=== PATIENT | male | born 1975 | race Caucasian/White ===

== ENCOUNTER → 2016-05-02 | Outpatient (CLI) | payer BC ==
[2016-05-02 08:07] LABS: ALT 41 U/L (21-72); AST 35 U/L (17-59); Anion Gap 9 mmol/L; Blood Urea Nitrogen 14 mg/dL (9-20); Calcium 9.3 mg/dL (8.4-10.2); Carbon Dioxide 28 mmol/L (22-30); Chloride 104 mmol/L (98-107); Cholesterol 150 mg/dL (<200); Glucose 148 mg/dL (74-99); HDL Cholesterol 41 mg/dL (40-60); Non-African American GFR(MDRD) >60 (>60 ml/min/1.73 sqM); Potassium 3.7 mmol/L (3.5-5.1); Sodium 141 mmol/L (137-145); Triglycerides 97 mg/dL (<150)
[2016-05-03 09:10] LABS: Hemoglobin A1C 7.7 % (4.2-6.1)
== END ==
LOC: LABWHC1 07:08
PROVIDERS: ATTEND Internal Medicine Endocrinology, Diabetes & Metabolism
DX: E10.65 Type 1 diabetes mellitus with hyperglycemia (principal)
CPT/HCPCS: 36415; 80048; 80061; 83036; 84443; 84450; 84460

== ENCOUNTER → 2016-08-22 | Outpatient (CLI) | payer BC ==
[2016-08-22 10:52] LABS: Blood Urea Nitrogen 18 mg/dL (9-20); Calcium 9.2 mg/dL (8.4-10.2); Carbon Dioxide 27 mmol/L (22-30); HDL Cholesterol 50 mg/dL (40-60); Potassium 4.3 mmol/L (3.5-5.1)
[2016-08-22 11:06] LABS: ALT 35 U/L (21-72); AST 24 U/L (17-59); Anion Gap 8 mmol/L; Chloride 106 mmol/L (98-107); Cholesterol 170 mg/dL (<200); Glucose 162 mg/dL (74-99); Non-African American GFR(MDRD) >60 (>60 ml/min/1.73 sqM); Sodium 141 mmol/L (137-145)
[2016-08-22 11:09] LABS: Triglycerides 44 mg/dL (<150)
[2016-08-22 11:36] LABS: Hemoglobin A1C 7.5 % (4.2-6.1)
== END | disposition home or self-care (01) ==
LOC: LABWHC1 09:44
PROVIDERS: ATTEND Internal Medicine Endocrinology, Diabetes & Metabolism
DX: E78.5 Hyperlipidemia, unspecified (principal); E04.9 Nontoxic goiter, unspecified; E10.65 Type 1 diabetes mellitus with hyperglycemia
CPT/HCPCS: 36415; 80048; 80061; 82043; 82570; 83036; 84450; 84460

== ENCOUNTER 2016-10-03 06:29 | Emergency (ER) | payer BC ==
[2016-10-03] MEDS ORDERED: KETOROLAC 30 MG/ML 1 ML VIAL IVP STA (06:47)
[2016-10-03] MEDS ORDERED: SODIUM CHLORIDE 0.9% 1,000 ML IV STA ×3 (06:49→08:19)
--- NOTE | 2016-10-03 06:53 | ED ---
Headache HPI - General Source: patient, RN notes reviewed Mode of arrival: ambulatory Limitations: no limitations - History of Present Illness MD Complaint: headache, other <Rony Lozano - Last Filed: 10/03/16 06:50> <Christophe Hillman - Last Filed: 10/03/16 09:06> - General Chief Complaint: Headache Stated Complaint: Headache Time Seen by Provider: 10/03/16 06:36 - History of Present Illness Initial Comments: This is a 41-year-old male with a history of diabetes is insulin-dependent who states that about a week ago he was stung or bit in the neck by a bee in 4 days later no left leg. There is a bee sting he started developing a frontal headache which is gotten worse today he noticed blood pressure was elevated his blood sugars her right high 333 this morning he also feels very weak he denies any neck or back pain however. No cough no phlegm production he was noted have a fever 101 when he arrived today. He is having insulin pump states that normally his blood sugars under control he did get a steroid shot at a walk-in clinic this past week after the bee sting. He currently states he is frontal headache pain dull achy 8 at 9/10 severity. (Rony Lozano) - Related Data Home Medications Medication Instructions Recorded Confirmed INSULIN LISPRO (For Pump) [humaLOG 0.01 units SQ-PUMP CONTINUOUS 10/03/16 (For Pump)] Previous Rx's Medication Instructions Recorded Acetaminophen-Codeine 300-30mg 1 each PO Q4H PRN #12 tablet 10/03/16 [Tylenol #3] Amoxicillin 500 mg PO Q8H #30 capsule 10/03/16 Allergies Allergy/AdvReac Type Severity Reaction Status Date / Time bee venom protein (honey bee) Allergy Rash/Hives Verified 10/03/16 07:50 morphine Allergy Dyspnea Verified 10/03/16 07:50 Review of Systems ROS Other: All systems not noted in ROS Statement are negative. <Rony Lozano - Last Filed: 10/03/16 06:50> ROS Other: All systems not noted in ROS Statement are negative. <Christophe Hillman - Last Filed: 10/03/16 09:06> ROS Statement: Those systems with pertinent positive or pertinent negative responses have been documented in the HPI. Past Medical History Past Medical History: Diabetes Mellitus History of Any Multi-Drug Resistant Organisms: None Reported Additional Past Surgical History / Comment(s): ACL replacement left knee 1998. Past Psychological History: No Psychological Hx Reported Smoking Status: Never smoker Past Alcohol Use History: None Reported, Daily Past Drug Use History: None Reported <BlakeRony - Last Filed: 10/03/16 06:50> General Exam Limitations: no limitations General appearance: alert, anxious Head exam: Present: atraumatic, normocephalic, normal inspection, other ( Tenderness percussion over the frontal sinus and left maxillary sinus.) Eye exam: Present: normal appearance, PERRL, EOMI. Absent: scleral icterus, conjunctival injection, periorbital swelling ENT exam: Present: other (Mild posterior pharyngeal hyperemia is boggy swollen nasal mucosa) Neck exam: Present: normal inspection, full ROM, other (No stridor JVD or bruits ). Absent: tenderness, meningismus, lymphadenopathy Respiratory exam: Present: normal lung sounds bilaterally. Absent: respiratory distress, wheezes, rales, rhonchi, stridor Cardiovascular Exam: Present: regular rate, normal rhythm, normal heart sounds. Absent: systolic murmur, diastolic murmur, rubs, gallop, clicks GI/Abdominal exam: Present: soft, normal bowel sounds. Absent: distended, tenderness, guarding, rebound, rigid Extremities exam: Present: normal inspection, full ROM, normal capillary refill. Absent: tenderness, pedal edema, joint swelling, calf tenderness Back exam: Present: normal inspection Neurological exam: Present: alert, oriented X3, CN II-XII intact Psychiatric exam: Present: normal affect, normal mood Skin exam: Present: warm, dry, intact, normal color. Absent: rash <BlakeRony - Last Filed: 10/03/16 06:50> Neurological exam: Present: alert, CN II-XII intact. Absent: motor sensory deficit Expanded Speech: Present: fluid speech Sensory exam: Upper Extremity Light Touch: Normal, Lower Extremity Light Touch: Normal Motor strength exam: RUE: 5, LUE: 5, RLE: 5, LLE: 5 Eye Response: (4) open spontaneously Motor Response: (6) obeys commands Verbal Response: (5) oriented <Christophe Hillman - Last Filed: 10/03/16 09:06> - General Exam Comments Initial Comments: This is a well-developed well-nourished awake alert oriented 3 male (BlakeRony) Course <BlakeRony - Last Filed: 10/03/16 06:50> <Christophe Hillman - Last Filed: 10/03/16 09:06> Vital Signs 10/03/16 10/03/16 06:36 07:46 Temperature 100.0 F H Pulse Rate 87 73 Respiratory 17 20 Rate Blood Pressure 146/70 146/79 O2 Sat by Pulse 96 96 Oximetry - Reevaluation(s) Reevaluation #1: 10/03/16 06:53 The patient's care will be endorsed to Dr. Hillman at our shift change at 7 AM. ( BlakeRony) 10/03/16 08:20 Patient reevaluated and resting comfortably in bed. Patient states headache is 6/10. Patient states headache started following a bee sting 1 week ago. Headache progressed over 2 days and has been severe since that time. Patient did take Motrin once at home with no improvement of symptoms around 12 hours. No history of chronic headaches. Patient does admit to having sinus discomfort and does have tenderness over the frontal and ethmoid sinuses. No meningismus. Abdomen soft and nontender. 10/03/16 09:04 Patient states he is further improved and requesting discharge. Patient was updated on results. (Christophe Hillman) Medical Decision Making - Lab Data Result diagrams: 10/03/16 06:55 10/03/16 06:55 - Radiology Data Radiology results: image reviewed (Chest x-ray shows no acute process. Computed tomography scan of the brain shows no acute process.) <Christophe Hillman - Last Filed: 10/03/16 09:06> - Lab Data Lab Results 10/03/16 10/03/16 10/03/16 Range/Units 06:55 06:55 07:37 WBC 5.7 (3.8-10.6) k/uL RBC 4.95 (4.30-5.90) m/uL Hgb 15.6 (13.0-17.5) gm/dL Hct 43.9 (39.0-53.0) % MCV 88.5 (80.0-100.0) fL MCH 31.4 (25.0-35.0) pg MCHC 35.5 (31.0-37.0) g/dL RDW 12.1 (11.5-15.5) % Plt Count 144 L (150-450) k/uL Neutrophils % 60 % Lymphocytes % 28 % Monocytes % 5 % Eosinophils % 3 % Basophils % 1 % Neutrophils # 3.4 (1.3-7.7) k/uL Lymphocytes # 1.6 (1.0-4.8) k/uL Monocytes # 0.3 (0-1.0) k/uL Eosinophils # 0.2 (0-0.7) k/uL Basophils # 0.1 (0-0.2) k/uL Sodium 139 (137-145) mmol/L Potassium 4.3 (3.5-5.1) mmol/L Chloride 104 (98-107) mmol/L Carbon Dioxide 25 (22-30) mmol/L Anion Gap 10 mmol/L BUN 19 (9-20) mg/dL Creatinine 0.90 (0.66-1.25) mg/dL Est GFR (MDRD) Af Amer >60 (>60 ml/min/1.73 sqM) Est GFR (MDRD) Non-Af >60 (>60 ml/min/1.73 sqM) Glucose 308 H (74-99) mg/dL POC Glucose (mg/dL) 260 H (75-99) mg/dL POC Glu Warp Splitter Syed García Calcium 9.1 (8.4-10.2) mg/dL Magnesium 1.8 (1.6-2.3) mg/dL Total Bilirubin 0.8 (0.2-1.3) mg/dL AST 28 (17-59) U/L ALT 50 (21-72) U/L Alkaline Phosphatase 120 (38-126) U/L C-Reactive Protein <5.0 (<10.0) mg/L Total Protein 6.7 (6.3-8.2) g/dL Albumin 3.9 (3.5-5.0) g/dL Urine Color Urine Appearance (Clear) Urine pH (5.0-8.0) Ur Specific [place] (1.001-1.035) Urine Protein (Negative) Urine Glucose (UA) (Negative) Urine Ketones (Negative) Urine Blood (Negative) Urine Nitrite (Negative) Urine Bilirubin (Negative) Urine Urobilinogen (<2.0) mg/dL Ur Leukocyte Esterase (Negative) Acetone, Qual Negative (Negative) 10/03/16 Range/Units 07:50 WBC (3.8-10.6) k/uL RBC (4.30-5.90) m/uL Hgb (13.0-17.5) gm/dL Hct (39.0-53.0) % MCV (80.0-100.0) fL MCH (25.0-35.0) pg MCHC (31.0-37.0) g/dL RDW (11.5-15.5) % Plt Count (150-450) k/uL Neutrophils % % Lymphocytes % % Monocytes % % Eosinophils % % Basophils % % Neutrophils # (1.3-7.7) k/uL Lymphocytes # (1.0-4.8) k/uL Monocytes # (0-1.0) k/uL Eosinophils # (0-0.7) k/uL Basophils # (0-0.2) k/uL Sodium (137-145) mmol/L Potassium (3.5-5.1) mmol/L Chloride (98-107) mmol/L Carbon Dioxide (22-30) mmol/L Anion Gap mmol/L BUN (9-20) mg/dL Creatinine (0.66-1.25) mg/dL Est GFR (MDRD) Af Amer (>60 ml/min/1.73 sqM) Est GFR (MDRD) Non-Af (>60 ml/min/1.73 sqM) Glucose (74-99) mg/dL POC Glucose (mg/dL) (75-99) mg/dL POC Glu Warp Splitter ID Calcium (8.4-10.2) mg/dL Magnesium (1.6-2.3) mg/dL Total Bilirubin (0.2-1.3) mg/dL AST (17-59) U/L ALT (21-72) U/L Alkaline Phosphatase (38-126) U/L C-Reactive Protein (<10.0) mg/L Total Protein (6.3-8.2) g/dL Albumin (3.5-5.0) g/dL Urine Color Yellow Urine Appearance Clear (Clear) Urine pH 6.0 (5.0-8.0) Ur Specific [place] 1.015 (1.001-1.035) Urine Protein Negative (Negative) Urine Glucose (UA) 4+ H (Negative) Urine Ketones Negative (Negative) Urine Blood Negative (Negative) Urine Nitrite Negative (Negative) Urine Bilirubin Negative (Negative) Urine Urobilinogen <2.0 (<2.0) mg/dL Ur Leukocyte Esterase Negative (Negative) Acetone, Qual (Negative) Disposition <Rony Lozano - Last Filed: 10/03/16 06:50> Time of Disposition: 09:05 <Christophe Hillman - Last Filed: 10/03/16 09:06> Clinical Impression: Headache, Sinusitis Disposition: HOME SELF-CARE Condition: Stable Instructions: Acute Headache (ED), Sinusitis (ED) Additional Instructions: Please follow-up with your primary care physician in the next couple of days for recheck. Return for increased pain, weakness, fevers, worsening or change in symptoms or other concerns. Prescriptions: Acetaminophen-Codeine 300-30mg [Tylenol #3] 1 each PO Q4H PRN #12 tablet PRN Reason: Pain Amoxicillin 500 mg PO Q8H #30 capsule Referrals: Blake Rashid MD [STAFF PHYSICIAN] - 1-2 days J Carlos Hennessy MD [Primary Care Provider] - 1-2 days Seth Carlin MD [REFERRING] - 1-2 days
[2016-10-03 07:06] LABS: Basophils # (A) 0.1 k/uL (0-0.2); Basophils % (A) 1 %; CH 31.8; Eosinophils # (A) 0.2 k/uL (0-0.7); Eosinophils % (A) 3 %; HCT 43.9 % (39.0-53.0); HDW 2.87; HGB 15.6 gm/dL (13.0-17.5); Luc # (Auto) 0.15; Luc % (Auto) 3; Lymphocytes # (A) 1.6 k/uL (1.0-4.8); Lymphocytes % (A) 28 %; MCH 31.4 pg (25.0-35.0); MCHC 35.5 g/dL (31.0-37.0); MCV 88.5 fL (80.0-100.0); Mean Platelet Volume 8.4; Monocytes # (A) 0.3 k/uL (0-1.0); Monocytes % (A) 5 %; Neutrophils # (A) 3.4 k/uL (1.3-7.7); Neutrophils % (A) 60 %; RBC 4.95 m/uL (4.30-5.90); RDW 12.1 % (11.5-15.5); WBC 5.7 k/uL (3.8-10.6); WBC (Perox) 5.59
[2016-10-03 07:22] LABS: ALT 50 U/L (21-72); AST 28 U/L (17-59); Alkaline Phosphatase 120 U/L (38-126); Anion Gap 10 mmol/L; Blood Urea Nitrogen 19 mg/dL (9-20); Calcium 9.1 mg/dL (8.4-10.2); Carbon Dioxide 25 mmol/L (22-30); Chloride 104 mmol/L (98-107); Glucose 308 mg/dL (74-99); Magnesium 1.8 mg/dL (1.6-2.3); Non-African American GFR(MDRD) >60 (>60 ml/min/1.73 sqM); Potassium 4.3 mmol/L (3.5-5.1); Sodium 139 mmol/L (137-145); Total Bilirubin 0.8 mg/dL (0.2-1.3); Total Protein 6.7 g/dL (6.3-8.2)
--- NOTE | 2016-10-03 07:32 | CT ---
EXAMINATION TYPE: CT brain wo con DATE OF EXAM: 10/03/2016 COMPARISON: NONE HISTORY: Severe frontal PARIKH, elevated BP CT DLP: 1017.9 mGycm. Automated Exposure Control for Dose Reduction was Utilized. TECHNIQUE: CT scan of the head is performed without contrast. FINDINGS: There is no acute intracranial hemorrhage, mass effect, or midline shift identified. The ventricles and sulci are within normal limits in size. The globes are intact and the visualized sin uses are clear. IMPRESSION: No acute intracranial hemorrhage, mass effect, or midline shift is seen. If there is con cern for acute ischemia or symptoms persist MRI recommended.
[2016-10-03 07:40] LABS: Glucose,Whole Blood 260 mg/dL (75-99)
[2016-10-03] MEDS ORDERED: ACETAMINOPHEN TAB 500 MG TAB PO STA (07:43)
[2016-10-03] MEDS ORDERED: METOCLOPRAMIDE 5 MG/ML 2 ML VIAL IVP STA (07:44)
--- NOTE | 2016-10-03 07:46 | XR ---
EXAMINATION TYPE: XR chest 2V DATE OF EXAM: 10/03/2016 COMPARISON: NONE HISTORY: Cough TECHNIQUE: Frontal and lateral views of the chest are obtained. FINDINGS: There is no focal air space opacity, pleural effusion, or pneumothorax seen. The cardiac silhouette size is within normal limits. The osseous structures are intact. IMPRESSION: No acute cardiopulmonary process.
[2016-10-03 07:47] VITALS: RESP 20
[2016-10-03 07:52] LABS: C Reactive Protein <5.0 mg/L (<10.0)
[2016-10-03 08:09] LABS: Appearance,Urine Clear (Clear); Bilirubin,Urine Negative (Negative); Glucose,Urine (UA) 4+ (Negative); Ketones,Urine Negative (Negative); Leukocyte Esterase,Urine Negative (Negative); Nitrite,Urine Negative (Negative); Protein,Urine Negative (Negative); Specific Gravity,Urine 1.015 (1.001-1.035); UA Billing (MACRO vs. MICRO) CHEM; Urobilinogen,Urine <2.0 mg/dL (<2.0)
[2016-10-03 09:13] VITALS: BP 124/58; PULSE 70; TEMP 98
== END 2016-10-03 09:21 | disposition home or self-care (01) ==
LOC: EC 06:29
DX: J32.9 Chronic sinusitis, unspecified (principal); R40.2142 Coma scale, eyes open, spontaneous, at arrival to emergency department; R40.2252 Coma scale, best verbal response, oriented, at arrival to emergency department; R40.2362 Coma scale, best motor response, obeys commands, at arrival to emergency department; E11.9 Type 2 diabetes mellitus without complications; Z79.4 Long term (current) use of insulin; Z88.5 Allergy status to narcotic agent; Z91.030 Bee allergy status
CPT/HCPCS: 36415; 80053; 82009; 83735; 85025; 86140; 81003; 87040; 71020; 70450; 99284; 96374; 96375; 96361 ×2; J2765; J1885

== ENCOUNTER → 2017-07-10 | Outpatient (CLI) | payer BC ==
[2017-07-10 08:35] LABS: Anion Gap 11 mmol/L; Blood Urea Nitrogen 16 mg/dL (9-20); Calcium 9.4 mg/dL (8.4-10.2); Carbon Dioxide 27 mmol/L (22-30); Chloride 105 mmol/L (98-107); Cholesterol 173 mg/dL (<200); Glucose 212 mg/dL (74-99); HDL Cholesterol 44 mg/dL (40-60); LDL Cholesterol,Calculated 115 mg/dL (0-99); Potassium 4.2 mmol/L (3.5-5.1); Sodium 143 mmol/L (137-145); Triglycerides 70 mg/dL (<150)
[2017-07-10 21:16] LABS: Hemoglobin A1C 7.9 % (4.0-6.0)
== END | disposition home or self-care (01) ==
LOC: LABWHC1 07:45
PROVIDERS: ATTEND Internal Medicine Endocrinology, Diabetes & Metabolism
DX: E78.5 Hyperlipidemia, unspecified (principal); E04.9 Nontoxic goiter, unspecified; E10.65 Type 1 diabetes mellitus with hyperglycemia
CPT/HCPCS: 36415; 80048; 80061; 83036

== ENCOUNTER → 2018-01-30 | Outpatient (CLI) | payer BC ==
[2018-01-30 18:24] LABS: Anion Gap 5.5 mmol/L (4.00-12.00); Calcium 9.3 mg/dL (8.7-10.3); Carbon Dioxide 28.5 mmol/L (21.6-31.8); LDL Cholesterol,Calculated 125.4 mg/dL (0.0-131.0); Potassium 4.5 mmol/L (3.5-5.5); VLDL Calculation 12.6 mg/dL (5.00-40.00)
[2018-01-30 23:30] LABS: Hemoglobin A1C 7.7 % (4.0-6.0)
== END ==
LOC: LABWHC1 10:38
PROVIDERS: ATTEND Internal Medicine Endocrinology, Diabetes & Metabolism
DX: E78.5 Hyperlipidemia, unspecified (principal); E04.9 Nontoxic goiter, unspecified; E10.65 Type 1 diabetes mellitus with hyperglycemia
CPT/HCPCS: 36415; 80048; 80061; 83036

== ENCOUNTER → 2018-05-09 | Outpatient (CLI) | payer BC ==
--- NOTE | 2018-05-09 09:52 | US ---
EXAMINATION TYPE: US venous doppler duplex LE RT DATE OF EXAM: 05/09/2018 9:42 AM COMPARISON: CLINICAL HISTORY: M25.561 PAIN IN RIGHT KNEE/M23.611. Pain in right knee/cramping. Hx of ACL and men iscus repair April 27. No blood thinners. SIDE PERFORMED: Right TECHNIQUE: The lower extremity deep venous system is examined utilizing real time linear array sonog ashanti with graded compression, doppler sonography and color-flow sonography. VESSELS IMAGED: External Iliac Vein (EIV) Common Femoral Vein Deep Femoral Vein Greater Saphenous Vein * Femoral Vein Popliteal Vein Small Saphenous Vein * Proximal Calf Veins (* superficial vessels) Grayscale, color doppler, spectral doppler imaging performed of the deep veins of the right lower ext remity. There is normal flow, compressibility, vascular waveforms. Right Leg: Negative for DVT IMPRESSION: No sonographic evidence of deep venous thrombosis within the right lower extremity.
== END | disposition home or self-care (01) ==
LOC: RADUSWWP 09:21
PROVIDERS: ATTEND Orthopaedic Surgery Sports Medicine
DX: S83.281D Other tear of lateral meniscus, current injury, right knee, subsequent encounter (principal); S83.241D Other tear of medial meniscus, current injury, right knee, subsequent encounter; M25.461 Effusion, right knee; I80.9 Phlebitis and thrombophlebitis of unspecified site; Z48.89 Encounter for other specified surgical aftercare

== ENCOUNTER → 2018-11-05 | Outpatient (CLI) | payer BC ==
[2018-11-05 16:15] LABS: African American GFR (CKD) 105.6 (60.0-200.0); Anion Gap 6.4 mmol/L (4.00-12.00); Calcium 9.1 mg/dL (8.7-10.3); Carbon Dioxide 25.6 mmol/L (21.6-31.8); Chol/HDL Ratio 4.05; LDL Cholesterol,Calculated 105.8 mg/dL (0.0-131.0); Potassium 4.1 mmol/L (3.5-5.5); VLDL Calculation 19.2 mg/dL (5.00-40.00)
[2018-11-05 17:43] LABS: Hemoglobin A1C 7.5 % (4.0-6.0)
== END | disposition home or self-care (01) ==
LOC: LABWHC1 07:20
PROVIDERS: ATTEND Internal Medicine Endocrinology, Diabetes & Metabolism
DX: E10.65 Type 1 diabetes mellitus with hyperglycemia (principal); E78.5 Hyperlipidemia, unspecified; E04.9 Nontoxic goiter, unspecified
CPT/HCPCS: 36415; 80048; 80061; 83036; 84443; 84450; 84460

== ENCOUNTER → 2019-01-28 | Outpatient (CLI) | payer BC ==
[2019-01-28 16:45] LABS: African American GFR (CKD) 105.6 (60.0-200.0); Anion Gap 4.5 mmol/L (4.00-12.00); Calcium 9.4 mg/dL (8.7-10.3); Carbon Dioxide 29.5 mmol/L (21.6-31.8); LDL Cholesterol,Calculated 69.6 mg/dL (0.0-131.0); Non-African American GFR(CKD) 91.1 (60.0-200.0); Potassium 4.6 mmol/L (3.5-5.5); VLDL Calculation 47.4 mg/dL (5.00-40.00)
[2019-01-28 19:08] LABS: Hemoglobin A1C 7.6 % (4.0-6.0)
== END | disposition home or self-care (01) ==
LOC: LABWHC1 07:31
PROVIDERS: ATTEND Internal Medicine Endocrinology, Diabetes & Metabolism
DX: E04.9 Nontoxic goiter, unspecified (principal); E78.5 Hyperlipidemia, unspecified; E10.65 Type 1 diabetes mellitus with hyperglycemia
CPT/HCPCS: 36415; 80048; 80061; 83036

== ENCOUNTER → 2020-06-16 | Outpatient (CLI) | payer BC ==
--- NOTE | 2020-06-16 10:11 | CT ---
EXAMINATION TYPE: CT angio chest DATE OF EXAM: 06/16/2020 9:42 AM COMPARISON: Chest x-ray October 03, 2016 HISTORY: Elevated D-dimer, shortness of breath CT DLP: 485.70 mGycm Automated exposure control for dose reduction was used. CONTRAST: CTA scan of the thorax is performed without and with IV Contrast, patient injected with 100 ml mL of Isovue 370, pulmonary embolism protocol. MIP images are created and reviewed. FINDINGS: LUNGS: There are bilateral multifocal groundglass opacities and organizing consolidations involving u pper and lower lungs. No pleural effusion or pneumothorax seen bilaterally. MEDIASTINUM: There is satisfactory enhancement of the pulmonary artery and its branches, there were f illing defects in the right upper lobe pulmonary artery coronal image 81 with segmental and subsegmen macie extension. There is right lower lobe pulmonary embolism with segmental extension near axial imag e 75, significant occlusive clot seen coronal image 90. There is clot in segmental branch left lower lobe coronal image 91 with subsegmental extension. There is significant loss in lingular branch axial image 63. There are enlarged bilateral hilar lymph nodes. There are prominent prevascular, pericarin al, and AP window lymph nodes. No pericardial effusion is seen. The right ventricular dilatation. H eart size upper limits of normal. OTHER: No additional significant abnormality is seen. IMPRESSION: Significant bilateral acute pulmonary embolism. No CT evidence for a strain. Significant bilateral multifocal and confluent groundglass opacities and organizing consolidations consistent wit h covid-19 infection in current environment. Correlate clinically. Perfect serve notification to physician performed at time of dictation. In addition results given to covering physician nurse via telephone to office at time of dictation.
== END | disposition home or self-care (01) ==
LOC: RADCTMAIN 08:37
PROVIDERS: ATTEND Family Medicine
DX: I26.99 Other pulmonary embolism without acute cor pulmonale (principal); R91.8 Other nonspecific abnormal finding of lung field
CPT/HCPCS: 71275; Q9967

== ENCOUNTER → 2020-06-30 | Outpatient (CLI) | payer BC ==
[2020-06-30 11:42] LABS: African American GFR (CKD) >90 (>60 ml/min/1.73 sqM); Blood Urea Nitrogen 17 mg/dL (9-20); Non-African American GFR(CKD) >90 (>60 ml/min/1.73 sqM)
--- NOTE | 2020-06-30 12:32 | CT ---
CT CHEST FOR PULMONARY EMBOLISM. EXAMINATION TYPE: CT angio chest DATE OF EXAM: 06/30/2020 INDICATION: PE CT DLP: 471.7 mGycm, Automated exposure control for dose reduction was used. CONTRAST: Patient injected with 100 mL of Isovue 370. COMPARISON: 06/16/2020 TECHNIQUE: CT of the chest is performed on a spiral scan at 2 mm thick sections. Study is performed with intravenous contrast timed for evaluation for pulmonary embolism. This will limit additional po rtions of the evaluation. 3-D MIP images reconstructed by the technologist are reviewed on the compu ter in the coronal and sagittal planes. FINDINGS: There is a large filling defect into right lower lobe pulmonary arteries with an abrupt cut off of ob struction. Series 4 image 79. Previous pulmonary emboli appear to have moved distally from the prior locations. Multiple small mediastinal lymph nodes are present. The largest measures 0.9 cm The ascending aorta diameter at the level of the main pulmonary artery is 3.0 cm. The main pulmonary artery diameter at the bifurcation is 2.9 cm. There are diffuse scattered mosaic groundglass opacities findings are nonspecific but can be related to atypical pneumonia. There may be some improvement from the comparison Limited CT section through the upper abdomen are unremarkable. IMPRESSIONS: 1. Persistent right lower lobe pulmonary embolism. 2. Diffuse groundglass opacities with some improvement from the comparison can be compatible with aty pical pneumonia such as Covid.
== END | disposition home or self-care (01) ==
LOC: RADCTMAIN 10:59
PROVIDERS: ATTEND Family Medicine
DX: I26.99 Other pulmonary embolism without acute cor pulmonale (principal); R91.8 Other nonspecific abnormal finding of lung field
CPT/HCPCS: 82565; 84520; 71275; 36415; Q9967

== ENCOUNTER → 2020-10-02 | Outpatient (CLI) | payer BC ==
[2020-10-02 09:12] LABS: African American GFR (CKD) >90 (>60 ml/min/1.73 sqM); Blood Urea Nitrogen 19 mg/dL (9-20); Non-African American GFR(CKD) >90 (>60 ml/min/1.73 sqM)
--- NOTE | 2020-10-06 10:06 | CT ---
CT CHEST FOR PULMONARY EMBOLISM. EXAMINATION TYPE: CT angio chest DATE OF EXAM: 10/02/2020 INDICATION: PE CT DLP: 478.5 mGycm, Automated exposure control for dose reduction was used. CONTRAST: Patient injected with 100 mL of Isovue 370. COMPARISON: 06/30/2020 TECHNIQUE: CT of the chest is performed on a spiral scan at 2 mm thick sections. Study is performed with intravenous contrast timed for evaluation for pulmonary embolism. This will limit additional po rtions of the evaluation. 3-D MIP images reconstructed by the technologist are reviewed on the compu ter in the coronal and sagittal planes. FINDINGS: No persistent filling defects are evident to suggest an acute pulmonary embolism. No mediastinal or hilar adenopathy enlarged by CT criteria is evident. The ascending aorta diameter at the level of the main pulmonary artery is 3.4 cm. The main pulmonary artery diameter at the bifur cation is 2.9 cm. There is some minimal right apical increased lung markings. These are improved comparison. Few scatte red posterior left upper lobe infiltrates are present. Mild infiltrates in the anterior right upper l obe. Some scattered peripheral infiltrates are through the right midlung greater than posterior aspect ext ending towards the right base. These appear to be chronic from prior exam. Limited CT section through the upper abdomen are unremarkable. IMPRESSIONS: 1. No acute pulmonary embolism. 2. Mild scattered peripheral infiltrates which are nonspecific but can be associated with atypical pn eumonia. These have improved from the comparison study.
== END | disposition home or self-care (01) ==
LOC: RADCTMAIN 08:28
PROVIDERS: ATTEND Family Medicine
DX: R91.8 Other nonspecific abnormal finding of lung field (principal)
CPT/HCPCS: 82565; 84520; 71275; 36415; Q9967

== ENCOUNTER → 2020-10-07 | Outpatient (CLI) | payer BC ==
[2020-10-07 21:16] LABS: Hemoglobin A1C 7.8 % (4.0-6.0)
[2020-10-08 03:20] LABS: Chol/HDL Ratio 3.76; LDL Cholesterol,Calculated 121.4 mg/dL (0.0-131.0); VLDL Calculation 13.6 mg/dL (5.00-40.00)
[2020-10-08 15:12] LABS: Urine Creatinine 118.2 mg/dL
== END | disposition home or self-care (01) ==
LOC: LABWHC1 10:52
PROVIDERS: ATTEND Family Medicine
DX: E10.65 Type 1 diabetes mellitus with hyperglycemia (principal); R53.82 Chronic fatigue, unspecified
CPT/HCPCS: 36415; 80061; 82043; 82306; 82570; 83036

== ENCOUNTER → 2021-01-26 | Outpatient (CLI) | payer BC | END | disposition home or self-care (01) | LOC: LABWHC1 08:40 | PROVIDERS: ATTEND Family Medicine | DX: E10.65 Type 1 diabetes mellitus with hyperglycemia (principal) | CPT/HCPCS: 36415; 83036 ==

== ENCOUNTER → 2021-04-30 | Outpatient (CLI) | payer BC ==
[2021-04-30 11:36] LABS: African American GFR (CKD) 106.6 (60.0-200.0); BUN/Creat Ratio 17.94 Ratio (12.00-20.00); Blood Urea Nitrogen 17.6 mg/dL (9.0-27.0); Calcium 9.4 mg/dL (8.7-10.3); Carbon Dioxide 23.8 mmol/L (20.0-27.5); Chloride 104 mmol/L (96-109); Glucose 226 mg/dL (70-110); Potassium 4.9 mmol/L (3.5-5.5); Sodium 141 mmol/L (135-145)
[2021-04-30 11:37] LABS: Chol/HDL Ratio 3.61 Ratio; LDL Cholesterol,Calculated 89.4 mg/dL (0.0-131.0); VLDL Calculation 17.64 mg/dL (5.00-40.00)
[2021-04-30 20:12] LABS: Microalbumin Creatinine Ratio <30 mg/g Creat (0-30)
== END | disposition home or self-care (01) ==
LOC: LABWHC1 07:58
PROVIDERS: ATTEND Family Medicine
DX: E10.65 Type 1 diabetes mellitus with hyperglycemia (principal); R53.82 Chronic fatigue, unspecified
CPT/HCPCS: 36415; 80048; 80061; 82043; 82306; 82570; 83036

== ENCOUNTER → 2022-12-26 | Outpatient (CLI) | payer BC | END | disposition home or self-care (01) | LOC: LABWHC1 08:58 | PROVIDERS: ATTEND Internal Medicine | DX: E10.65 Type 1 diabetes mellitus with hyperglycemia (principal) | CPT/HCPCS: 36415; 83036 ==

== ENCOUNTER → 2023-03-28 | Outpatient (CLI) | payer BC ==
[2023-03-28 13:37] LABS: Microalbumin Creatinine Ratio <11 mg/g Cr (0-30)
[2023-03-28 13:45] LABS: ALT 37 U/L (10-49); AST 27 U/L (14-35); Albumin 4.2 g/dL (3.8-4.9); Albumin/Globulin Ratio 1.91 Ratio (1.60-3.17); Alkaline Phosphatase 82 U/L (41-126); BUN/Creat Ratio 17.56 Ratio (12.00-20.00); Blood Urea Nitrogen 15.8 mg/dL (9.0-27.0); Calcium 9.7 mg/dL (8.7-10.3); Carbon Dioxide 28.2 mmol/L (21.6-31.8); Chloride 105 mmol/L (96-109); Chol/HDL Ratio 3.13 Ratio; Globulin 2.2 g/dL (1.6-3.3); Glucose 139 mg/dL (70-110); LDL Cholesterol,Calculated 91.1 mg/dL (0.0-131.0); Potassium 4.5 mmol/L (3.5-5.5); Sodium 141 mmol/L (135-145); Total Bilirubin 0.9 mg/dL (0.3-1.2); Total Protein 6.4 g/dL (6.2-8.2); VLDL Calculation 12.32 mg/dL (5.00-40.00)
[2023-03-28 14:13] LABS: C-Peptide <0.02 ng/mL (0.81-3.85)
== END | disposition home or self-care (01) ==
LOC: LABWHC1 08:00
PROVIDERS: ATTEND Internal Medicine
DX: E10.65 Type 1 diabetes mellitus with hyperglycemia (principal); E78.5 Hyperlipidemia, unspecified; E55.9 Vitamin D deficiency, unspecified; R53.82 Chronic fatigue, unspecified
CPT/HCPCS: 36415; 80053; 80061; 82043; 82306; 82570; 83036; 84681

== ENCOUNTER → 2023-07-06 | Outpatient (CLI) | payer BC | END | disposition home or self-care (01) | LOC: LABWHC1 09:40 | PROVIDERS: ATTEND Internal Medicine | DX: E10.65 Type 1 diabetes mellitus with hyperglycemia (principal) | CPT/HCPCS: 36415; 83036 ==

== ENCOUNTER → 2024-01-18 | Outpatient (CLI) | payer BC | END | disposition home or self-care (01) | LOC: LABWHC1 07:57 | PROVIDERS: ATTEND Internal Medicine | DX: E10.65 Type 1 diabetes mellitus with hyperglycemia (principal) | CPT/HCPCS: 36415; 83036 ==

== ENCOUNTER → 2024-05-03 | Outpatient (CLI) | payer BC ==
[2024-05-03 15:31] LABS: ALT 68 U/L (10-49); AST 36 U/L (14-35); Albumin 4.1 g/dL (3.8-4.9); Albumin/Globulin Ratio 1.86 Ratio (1.60-3.17); Alkaline Phosphatase 98 U/L (41-126); Blood Urea Nitrogen 14.4 mg/dL (9.0-27.0); Calcium 9.3 mg/dL (8.7-10.3); Carbon Dioxide 27.8 mmol/L (21.6-31.8); Chloride 106 mmol/L (96-109); Chol/HDL Ratio 3.94 Ratio; Globulin 2.2 g/dL (1.6-3.3); Glucose 155 mg/dL (70-110); LDL Cholesterol,Calculated 124.5 mg/dL (0.0-131.0); Potassium 4.5 mmol/L (3.5-5.5); Sodium 143 mmol/L (135-145); Total Bilirubin 0.5 mg/dL (0.3-1.2); Total Protein 6.3 g/dL (6.2-8.2); VLDL Calculation 13.52 mg/dL (5.00-40.00)
[2024-05-03 16:54] LABS: Microalbumin Creatinine Ratio <30 mg/g Cr (0-30); Urine Creatinine 40.2 mg/dL (39.0-259.0)
== END | disposition home or self-care (01) ==
LOC: LABWHC1 07:47
PROVIDERS: ATTEND Internal Medicine
DX: E10.65 Type 1 diabetes mellitus with hyperglycemia (principal)
CPT/HCPCS: 36415; 80053; 80061; 82043; 82570; 83036